=== PATIENT | male | born 1970 | race Caucasian/White ===

== ENCOUNTER 2025-03-20 12:21 | Outpatient (CLI) | payer MEDICAID, SELFPAY | END 2025-03-20 12:22 | disposition home or self-care (01) | LOC: LAB 12:24 | PROVIDERS: Family Provider Nurse Practitioner Family; PCP Nurse Practitioner Family; Visit Provider Internal Medicine | DX: D72.829 Elevated white blood cell count, unspecified (principal) | CPT/HCPCS: 84156; 84166 ==

== ENCOUNTER 2025-04-08 14:30 | Oncology outpatient (recurring) (ONCR) | payer MEDICAID, SELFPAY ==
[2025-03-18 16:15] LABS: Hematocrit 45.6 % (37-53); Hemoglobin 14.80 g/dL (11.27-16.99); Mean Corpuscular HGB Conc 32.5 g/dL (30-55); Mean Corpuscular Hemoglobin 29.2 pg (27-33); Mean Corpuscular Volume 90.1 fl (82-101); Nucleated Red Blood Cells % 0 %; Platelet Count 367 10^3/cmm (157-399); Red Blood Count 5.06 10^6/uL (3.85-5.65); White Blood Count 17.47 10^3/uL (3.29-11.43)
[2025-03-18 16:43] LABS: Alanine Aminotransferase 25 U/L (0-41); Albumin Level 3.9 g/dL (3.5-5.2); Alkaline Phosphatase 89 U/L (40-130); Anion Gap 16.4 (5-19); Aspartate Amino Transferase 20 U/L (0-40); Blood Urea Nitrogen 11 mg/dL (6-20); Calcium 9.8 mg/dL (8.5-10.5); Carbon Dioxide 23 mmol/L (22-29); Chloride 103 mmol/L (98-107); Creatinine Clr Calc Pharmacy 165.7077; Globulin 3.8 g/dL (1.3-4.6); Glucose 110 mg/dL (65-115); Osmolality Calculated 286 mOsm/kg (285-295); Potassium 4.4 mmol/L (3.5-5.1); Sodium 138 mmol/L (136-145); Total Protein 7.7 g/dL (6.6-8.7); Uric Acid 5.6 mg/dL (3.4-7.0)
[2025-03-19 04:51] LABS: PROTEIN, TOTAL 7.1 g/dL (6.1-8.1)
[2025-03-19 12:38] LABS: Leukemia Profile (BBPL) See Report
[2025-03-20 08:40] LABS: ALPHA 1 GLOBULIN 0.4 g/dL (0.2-0.3); ALPHA 2 GLOBULIN 1.0 g/dL (0.5-0.9); BETA 1 GLOBULIN 0.5 g/dL (0.4-0.6); BETA 2 GLOBULIN 0.5 g/dL (0.2-0.5)
--- NOTE | 2025-04-08 14:29 | US_ITS ---
WS: [id number] Complete ABDOMINAL ULTRASOUND HISTORY: LEUKOCYTOSIS COMPARISON: None available. Liver: 20.9 cm in length. Moderately enlarged liver. Attenuation of the liver from hepatic steatosis. The liver is poorly visualized in its entirety. Portal Vein: Normal hepatopetal flow with monophasic waveform. Gallbladder: Gallbladder is normally distended. Several images there are foci within the gallbladder which are probably stones. No significant amount of shadowing. CBD: 0.3 cm Pancreas: Completely obscured. Right kidney: 10.0 cm x 6.1 x 5.1 cm. Cortex:1.3 cm. Normal size and echogenicity. No hydronephrosis or mass. Left kidney: 9.6 cm x 4.9 cm x 5.4 cm. Cortex: 1.3 cm. Normal size and echogenicity. No hydronephrosis or mass. Spleen: 11.4 cm. Normal size and echogenicity. Aorta and IVC: Unremarkable abdominal aorta and IVC. US/US abdomen complete* [id number] Impression: 1. Technically limited evaluation of the RIGHT upper quadrant due to body habi tus. 2. On a few images there foci within the gallbladder which do not shadow but a re suspicious for cholelithiasis. No evidence for acute cholecystitis. 3. Moderate hepatomegaly with hepatic steatosis. 4. No renal obstruction.
== END 2025-04-12 23:59 | disposition home or self-care (01) ==
LOC: RAD 04-09 → ONCMED 04-09 08:59
PROVIDERS: Family Provider Nurse Practitioner Family; PCP Nurse Practitioner Family; Visit Provider Internal Medicine
DX: D72.829 Elevated white blood cell count, unspecified; R93.5 Abnormal findings on diagnostic imaging of other abdominal regions, including retroperitoneum; R16.0 Hepatomegaly, not elsewhere classified; K76.0 Fatty (change of) liver, not elsewhere classified; Z53.9 Procedure and treatment not carried out, unspecified reason
CPT/HCPCS: 36415; 76700; 80053; 82784; 83615; 84100; 84155; 84165; 84550; 85025; 86334; 88184; 88185